=== PATIENT | male | born 1965 | race Caucasian/White ===

== ENCOUNTER 2018-03-03 15:25 | Outpatient (REF) | payer OTHER, MEDICAID, SELFPAY ==
[2018-03-03 16:19] LABS: Bilirubin Negative (Negative); Blood Moderate (Negative); Clarity Sl Cloudy; Glucose Negative (Negative); Ketones Negative (Negative); Leukocyte Esterase Trace (Negative); Nitrite Negative (Negative); Urobilinogen 0.2 EU/dL (Up TO 0.2); pH 5.5 (5-8)
[2018-03-03 16:25] LABS: Bilirubin Negative (Negative); Blood Large (Negative); Clarity Cloudy; Glucose Negative (Negative); Ketones Negative (Negative); Leukocyte Esterase Small (Negative); Nitrite Negative (Negative); Urobilinogen 0.2 EU/dL (Up TO 0.2)
[2018-03-03 16:30] LABS: Bilirubin, Total 0.4 mg/dL (0.2-1.0); TSH 56.37 uIU/mL (0.358-3.74)
[2018-03-03 16:37] LABS: C & S Indicated? Yes
[2018-03-03 17:04] LABS: RBC Negative (0-2); WBC >50 HPF (0-5)
[2018-03-03 17:05] LABS: Bacteria Rare HPF (Negative); C & S Indicated? Yes; Crystals Negative HPF (Negative); Epithelial Cells Rare HPF (Negative); Mucus Trace (Negative)
[2018-03-04 17:26] LABS: T3, Total 112 ng/dl (97-169)
[2018-03-05 22:33] LABS: Iodine, Random Urine 73 mcg/L (26-705)
[2018-03-05 22:33] LABS: Iodine, Random Urine 105 mcg/L (26-705)
== END 2018-03-03 15:45 ==
LOC: LBN 15:25
PROVIDERS: Student in an Organized Health Care Education/Training Program; PCP Internal Medicine; Visit Provider Internal Medicine
DX: E03.9 Hypothyroidism, unspecified (principal); Z92.25 Personal history of immunosuppression therapy
CPT/HCPCS: 83018; 87077; 81003; 81015; 82247; 84443; 84445; 84480; 87086; 87186

== ENCOUNTER 2018-03-22 09:00 | Outpatient (REF) | payer OTHER, MEDICAID, SELFPAY ==
[2018-03-22 12:02] LABS: Bilirubin Negative (Negative); Blood Moderate (Negative); Clarity Cloudy; Glucose Negative (Negative); Ketones Negative (Negative); Leukocyte Esterase Small (Negative); Nitrite Positive (Negative); Specific Gravity >= 1.030 (1.005-1.025); Urobilinogen 0.2 EU/dL (Up TO 0.2); pH 5.5 (5-8)
[2018-03-22 12:05] LABS: Bilirubin Negative (Negative); Blood Large (Negative); Clarity Cloudy; Glucose Negative (Negative); Ketones Negative (Negative); Leukocyte Esterase Large (Negative); Nitrite Positive (Negative); Urobilinogen 0.2 EU/dL (Up TO 0.2); pH 6.5 (5-8)
[2018-03-22 12:30] LABS: Bacteria Moderate HPF (Negative); C & S Indicated? Yes; Casts Negative LPF (Negative); Crystals Few Calcium Oxalate HPF (Negative); Epithelial Cells Negative HPF (Negative); Mucus Negative (Negative); RBC 20-50 (0-2); WBC 20-50 HPF (0-5)
[2018-03-22 12:31] LABS: RBC >50 (0-2); WBC >50 HPF (0-5)
[2018-03-22 12:32] LABS: Bacteria Moderate HPF (Negative); C & S Indicated? Yes; Casts Negative LPF (Negative); Crystals Negative HPF (Negative); Epithelial Cells Negative HPF (Negative); Mucus Negative (Negative)
== END 2018-03-22 09:20 ==
LOC: LBN 09:00
PROVIDERS: PCP Internal Medicine; Visit Provider Family Medicine
DX: Z93.6 Other artificial openings of urinary tract status (principal); Z43.6 Encounter for attention to other artificial openings of urinary tract; Z92.25 Personal history of immunosuppression therapy
CPT/HCPCS: 87077; 81003; 81015; 87086; 87186

== ENCOUNTER 2018-04-10 15:33 | Outpatient (REF) | payer OTHER, MEDICAID, SELFPAY ==
[2018-04-10 16:14] LABS: Bilirubin Negative (Negative); Blood Large (Negative); Clarity Sl Cloudy; Glucose Negative (Negative); Ketones Negative (Negative); Leukocyte Esterase Moderate (Negative); Nitrite Negative (Negative); Urobilinogen 0.2 EU/dL (Up TO 0.2)
[2018-04-10 16:25] LABS: Bacteria Few HPF (Negative); Crystals Negative HPF (Negative); Epithelial Cells Rare HPF (Negative); Mucus Negative (Negative); Other Cells Negative (Negative); RBC >50 (0-2)
[2018-04-10 16:26] LABS: C & S Indicated? C&S Done As Ordered
[2018-04-10 18:05] LABS: Bilirubin Negative (Negative); Blood Small (Negative); Clarity Clear; Glucose Negative (Negative); Ketones Negative (Negative); Leukocyte Esterase Trace (Negative); Nitrite Negative (Negative); Urobilinogen 0.2 EU/dL (Up TO 0.2); pH 6.5 (5-8)
[2018-04-10 18:22] LABS: Bacteria Rare HPF (Negative); Casts Negative LPF (Negative); Crystals Negative HPF (Negative); Epithelial Cells Rare HPF (Negative); Mucus Negative (Negative); Other Cells Negative (Negative); RBC 0-2 (0-2); WBC 0-2 HPF (0-5)
[2018-04-10 18:23] LABS: C & S Indicated? C&S Done As Ordered
== END 2018-04-10 15:53 ==
LOC: LBN 15:33
PROVIDERS: PCP Family Medicine; Visit Provider Family Medicine
DX: C67.9 Malignant neoplasm of bladder, unspecified (principal); C79.9 Secondary malignant neoplasm of unspecified site; Z93.6 Other artificial openings of urinary tract status; Z43.6 Encounter for attention to other artificial openings of urinary tract; Z92.25 Personal history of immunosuppression therapy
CPT/HCPCS: 87077; 81003; 81015; 87086; 87186

== ENCOUNTER 2018-04-24 15:08 | Outpatient (REF) | payer OTHER, MEDICAID, SELFPAY ==
[2018-04-24 16:17] LABS: Bilirubin Negative (Negative); Blood Small (Negative); Clarity Clear; Glucose Negative (Negative); Ketones Negative (Negative); Leukocyte Esterase Negative (Negative); Nitrite Negative (Negative); Urobilinogen 0.2 EU/dL (Up TO 0.2)
[2018-04-24 16:20] LABS: Bilirubin Negative (Negative); Blood Large (Negative); Clarity Clear; Glucose Negative (Negative); Ketones Negative (Negative); Leukocyte Esterase Small (Negative); Nitrite Negative (Negative); Specific Gravity 1.015 (1.005-1.025); Urobilinogen 0.2 EU/dL (Up TO 0.2)
[2018-04-24 16:40] LABS: Epithelial Cells Negative HPF (Negative); Other Cells Negative (Negative); RBC 0-2 (0-2); WBC Negative HPF (0-5)
[2018-04-24 16:41] LABS: Bacteria Few HPF (Negative); C & S Indicated? No; Casts Negative LPF (Negative); Crystals Negative HPF (Negative); Epithelial Cells Negative HPF (Negative); Mucus Negative (Negative); Other Cells Negative (Negative)
[2018-04-24 16:42] LABS: C & S Indicated? Yes; Casts Negative LPF (Negative); Crystals Negative HPF (Negative); Mucus Negative (Negative)
== END 2018-04-24 15:28 ==
LOC: NCHCO 15:08
PROVIDERS: Urology; PCP Family Medicine; Visit Provider Family Medicine
DX: C79.10 Secondary malignant neoplasm of unspecified urinary organs (principal); Z93.6 Other artificial openings of urinary tract status; Z43.6 Encounter for attention to other artificial openings of urinary tract; J18.9 Pneumonia, unspecified organism; Z92.25 Personal history of immunosuppression therapy
CPT/HCPCS: 81003; 81015; 87086

== ENCOUNTER 2018-05-13 14:55 | Outpatient (REF) | payer OTHER, MEDICAID, SELFPAY ==
[2018-05-13 17:07] LABS: Bilirubin Negative (Negative); Blood Moderate (Negative); Clarity Clear; Glucose Negative (Negative); Ketones Negative (Negative); Leukocyte Esterase Trace (Negative); Nitrite Negative (Negative); Urobilinogen 0.2 EU/dL (Up TO 0.2); pH 5.5 (5-8)
[2018-05-13 17:10] LABS: Bilirubin Negative (Negative); Blood Large (Negative); Clarity Sl Cloudy; Glucose Negative (Negative); Ketones Negative (Negative); Leukocyte Esterase Large (Negative); Nitrite Negative (Negative); Urobilinogen 0.2 EU/dL (Up TO 0.2)
[2018-05-13 17:59] LABS: Bacteria Few HPF (Negative); C & S Indicated? Yes; Casts Negative LPF (Negative); Crystals Negative HPF (Negative); Epithelial Cells Negative HPF (Negative); Mucus Negative (Negative)
[2018-05-13 18:00] LABS: Bacteria Negative HPF (Negative); C & S Indicated? Yes; Casts Negative LPF (Negative); Crystals Negative HPF (Negative); Epithelial Cells Negative HPF (Negative); Mucus Negative (Negative); Other Cells Negative (Negative); RBC >50 (0-2)
== END 2018-05-13 15:15 ==
LOC: LBN 14:55
PROVIDERS: PCP Family Medicine; Visit Provider Urology
DX: J18.9 Pneumonia, unspecified organism (principal); Z92.25 Personal history of immunosuppression therapy; Z43.6 Encounter for attention to other artificial openings of urinary tract; Z93.6 Other artificial openings of urinary tract status; R82.90 Unspecified abnormal findings in urine
CPT/HCPCS: 87077; 81003; 81015; 87086; 87186

== ENCOUNTER 2018-05-14 11:28 | Outpatient (REF) | payer OTHER, MEDICAID, SELFPAY ==
[2018-05-14 12:54] LABS: TSH (W/Ref FT4) 4.13 uIU/mL (0.358-3.74)
== END 2018-05-14 11:48 ==
LOC: LBN 11:28
PROVIDERS: PCP Family Medicine; Visit Provider Student in an Organized Health Care Education/Training Program
DX: E03.9 Hypothyroidism, unspecified (principal); C79.89 Secondary malignant neoplasm of other specified sites; Z92.25 Personal history of immunosuppression therapy
CPT/HCPCS: 84439; 84443

== ENCOUNTER 2018-06-06 15:06 | Outpatient (REF) | payer OTHER, MEDICAID, SELFPAY ==
[2018-06-06 16:22] LABS: Bilirubin Negative (Negative); Blood Large (Negative); Clarity Sl Cloudy; Glucose Negative (Negative); Ketones Negative (Negative); Leukocyte Esterase Moderate (Negative); Nitrite Negative (Negative); Specific Gravity 1.015 (1.005-1.025); Urobilinogen 0.2 EU/dL (Up TO 0.2)
[2018-06-06 16:24] LABS: Bilirubin Negative (Negative); Blood Trace-intact (Negative); Clarity Clear; Glucose Negative (Negative); Ketones Negative (Negative); Leukocyte Esterase Small (Negative); Nitrite Negative (Negative); Specific Gravity 1.015 (1.005-1.025); Urobilinogen 0.2 EU/dL (Up TO 0.2)
[2018-06-06 16:37] LABS: Bacteria Moderate HPF (Negative); Crystals Negative HPF (Negative); Epithelial Cells Negative HPF (Negative); Mucus Negative (Negative); Other Cells Rare Renal (Negative); RBC >50 (0-2); WBC 20-50 HPF (0-5)
[2018-06-06 16:38] LABS: C & S Indicated? Yes; Epithelial Cells Negative HPF (Negative); Other Cells Rare Renal (Negative)
[2018-06-06 16:39] LABS: Bacteria Few HPF (Negative); C & S Indicated? Yes; Casts Negative LPF (Negative); Crystals Negative HPF (Negative); Mucus Negative (Negative)
== END 2018-06-06 15:26 ==
LOC: LBN 15:06
PROVIDERS: PCP Family Medicine; Visit Provider Urology
DX: C67.9 Malignant neoplasm of bladder, unspecified (principal); C79.10 Secondary malignant neoplasm of unspecified urinary organs; Z93.6 Other artificial openings of urinary tract status; Z43.6 Encounter for attention to other artificial openings of urinary tract; Z92.25 Personal history of immunosuppression therapy
CPT/HCPCS: 87077; 81003; 81015; 87086; 87186

== ENCOUNTER 2018-06-23 14:16 | Outpatient (REF) | payer OTHER, MEDICAID, SELFPAY ==
[2018-06-23 16:22] LABS: Bilirubin Negative (Negative); Blood Trace-lysed (Negative); Clarity Cloudy; Glucose Negative (Negative); Ketones Negative (Negative); Leukocyte Esterase Trace (Negative); Nitrite Negative (Negative); Specific Gravity 1.025 (1.005-1.025); Urobilinogen 0.2 EU/dL (Up TO 0.2); pH 5.5 (5-8)
[2018-06-23 16:26] LABS: Bilirubin Negative (Negative); Blood Large (Negative); Clarity Sl Cloudy; Glucose Negative (Negative); Ketones Negative (Negative); Leukocyte Esterase Large (Negative); Nitrite Negative (Negative); Specific Gravity 1.015 (1.005-1.025); Urobilinogen 0.2 EU/dL (Up TO 0.2)
[2018-06-23 16:38] LABS: Epithelial Cells Rare HPF (Negative)
[2018-06-23 16:39] LABS: C & S Indicated? Yes; Casts Negative LPF (Negative); Crystals Few Amorphous HPF (Negative); Mucus Trace (Negative)
[2018-06-23 16:40] LABS: C & S Indicated? Yes; WBC >50 HPF (0-5)
[2018-06-25 11:06] LABS: Bacteria Many HPF (Negative)
== END 2018-06-23 14:36 ==
LOC: LBN 14:16
PROVIDERS: PCP Family Medicine; Visit Provider Urology
DX: J18.9 Pneumonia, unspecified organism (principal); Z92.21 Personal history of antineoplastic chemotherapy; Z92.25 Personal history of immunosuppression therapy; Z93.6 Other artificial openings of urinary tract status
CPT/HCPCS: 87077; 81003; 81015; 87086; 87186

== ENCOUNTER 2018-07-09 14:16 | Outpatient (REF) | payer OTHER, MEDICAID, SELFPAY ==
[2018-07-09 14:53] LABS: HCT 34.9 % (40.0-50.0); HGB 11.3 g/dL (13.5-17.5); Mean Corp. HGB Concentration 32.4 g/dL (32.0-36.0); Mean Corpuscular Hemoglobin 27.1 pg (27.0-33.0); Mean Corpuscular Volume 83.7 fL (80-95); Mean Platelet Volume 10.3 fL (8.0-11.0); Platelet Count 288 x1000/uL (130-400); RBC 4.17 m/cumm (4.50-6.00); RBC Distribution Width 12.9 % (11.8-14.1); White Blood Cell Count 5.83 k/cumm (4.4-10.8)
== END 2018-07-09 14:36 ==
LOC: LBN 14:16
PROVIDERS: PCP Family Medicine; Visit Provider Family Medicine
DX: I82.629 Acute embolism and thrombosis of deep veins of unspecified upper extremity (principal); Z79.01 Long term (current) use of anticoagulants
CPT/HCPCS: 85027

== ENCOUNTER 2018-07-10 16:03 | Outpatient (REF) | payer OTHER, MEDICAID, SELFPAY | END 2018-07-10 16:23 | LOC: LBN 16:03 | PROVIDERS: PCP Family Medicine; Visit Provider Family Medicine | DX: K92.1 Melena (principal) | CPT/HCPCS: 82272 ==

== ENCOUNTER 2018-07-21 16:51 | Outpatient (REF) | payer OTHER, MEDICAID, SELFPAY ==
[2018-07-21 17:48] LABS: HCT 32.4 % (40.0-50.0); HGB 10.3 g/dL (13.5-17.5); Mean Corp. HGB Concentration 31.8 g/dL (32.0-36.0); Mean Corpuscular Hemoglobin 26.7 pg (27.0-33.0); Mean Corpuscular Volume 83.9 fL (80-95); Mean Platelet Volume 10.3 fL (8.0-11.0); Platelet Count 387 x1000/uL (130-400); RBC 3.86 m/cumm (4.50-6.00); RBC Distribution Width 13.2 % (11.8-14.1); White Blood Cell Count 5.92 k/cumm (4.4-10.8)
== END 2018-07-21 17:11 ==
LOC: NCHCN 16:51
PROVIDERS: PCP Family Medicine; Visit Provider Family Medicine
DX: I82.491 Acute embolism and thrombosis of other specified deep vein of right lower extremity (principal); K92.2 Gastrointestinal hemorrhage, unspecified
CPT/HCPCS: 85027

== ENCOUNTER 2018-09-25 09:01 | Outpatient (REF) | payer OTHER, SELFPAY ==
[2018-09-25 09:28] LABS: Abs Immature Grans 0.06 k/cumm (0.0-0.09); Absolute Basophil Count 0.03 k/cumm (0.0-0.2); Absolute Lymphocyte Count 0.86 k/cumm (1.2-3.4); Absolute Monocyte Count 0.44 k/cumm (0.11-0.7); Absolute Neutrophil Count 3.63 k/cumm (1.2-6.7); Basophils % 0.6; HCT 28.1 % (40.0-50.0); HGB 8.6 g/dL (13.5-17.5); Immature Grans % 1.2; Lymphocytes % 17.1; Mean Corp. HGB Concentration 30.6 g/dL (32.0-36.0); Mean Corpuscular Hemoglobin 26.8 pg (27.0-33.0); Mean Corpuscular Volume 87.5 fL (80-95); Mean Platelet Volume 10.8 fL (8.0-11.0); Monocytes % 8.8; Neutrophils % 72.3; Platelet Count 196 x1000/uL (130-400); RBC 3.21 m/cumm (4.50-6.00); RBC Distribution Width 16.7 % (11.8-14.1); White Blood Cell Count 5.02 k/cumm (4.4-10.8)
[2018-09-25 09:49] LABS: TSH 5.76 uIU/mL (0.358-3.74)
== END 2018-09-25 09:21 ==
LOC: LBN 09:01
PROVIDERS: PCP Family Medicine; Visit Provider Student in an Organized Health Care Education/Training Program
DX: D64.9 Anemia, unspecified (principal); M79.609 Pain in unspecified limb; R31.9 Hematuria, unspecified; Z79.01 Long term (current) use of anticoagulants; E05.90 Thyrotoxicosis, unspecified without thyrotoxic crisis or storm; E03.9 Hypothyroidism, unspecified
CPT/HCPCS: 84443; 85025

== ENCOUNTER 2018-10-07 15:14 | Outpatient (REF) | payer OTHER, MEDICAID, SELFPAY ==
[2018-10-07 16:46] LABS: Abs Immature Grans 6.37 k/cumm (0.0-0.09); HGB 7.8 g/dL (13.5-17.5); Mean Corp. HGB Concentration 31.2 g/dL (32.0-36.0); Mean Corpuscular Hemoglobin 26.6 pg (27.0-33.0); Mean Corpuscular Volume 85.3 fL (80-95); Mean Platelet Volume 10.9 fL (8.0-11.0); Platelet Count 298 x1000/uL (130-400); RBC 2.93 m/cumm (4.50-6.00); RBC Distribution Width 16.3 % (11.8-14.1)
[2018-10-07 20:39] LABS: Absolute Lymphocyte Count 1.36 k/cumm (1.2-3.4); Absolute Neutrophil Count 21.95 k/cumm (1.2-6.7); Atypical Lymphocytes % 1
[2018-10-07 20:40] LABS: Absolute Eosinophil Count 0.54 k/cumm (0.0-0.7); Absolute Monocyte Count 1.08 k/cumm (0.11-0.7); Diff Comment Manual Differential; Hypochromasia 2+; Nucleated RBC 1 /100WBC
== END 2018-10-07 15:34 ==
LOC: LBN 15:14
PROVIDERS: PCP Family Medicine
DX: D64.9 Anemia, unspecified (principal)
CPT/HCPCS: 85025

== ENCOUNTER 2018-10-10 15:18 | Outpatient (REF) | payer OTHER, MEDICAID, SELFPAY ==
[2018-10-10 16:10] LABS: Abs Immature Grans 2.52 k/cumm (0.0-0.09); HCT 31.1 % (40.0-50.0); HGB 9.6 g/dL (13.5-17.5); Mean Corp. HGB Concentration 30.9 g/dL (32.0-36.0); Mean Corpuscular Hemoglobin 26.5 pg (27.0-33.0); Mean Corpuscular Volume 85.9 fL (80-95); Mean Platelet Volume 10.8 fL (8.0-11.0); Platelet Count 240 x1000/uL (130-400); RBC 3.62 m/cumm (4.50-6.00); White Blood Cell Count 23.41 k/cumm (4.4-10.8)
[2018-10-10 20:01] LABS: Absolute Lymphocyte Count 1.87 k/cumm (1.2-3.4)
[2018-10-10 20:02] LABS: Absolute Monocyte Count 1.17 k/cumm (0.11-0.7); Diff Comment Manual Differential; RBC Morphology Normal
== END 2018-10-10 15:38 ==
LOC: NCHCN 15:18
PROVIDERS: PCP Family Medicine; Visit Provider Physician Assistant
DX: D64.9 Anemia, unspecified (principal); R53.83 Other fatigue
CPT/HCPCS: 85025

== ENCOUNTER 2018-10-15 18:11 | Outpatient (REF) | payer OTHER, MEDICAID, SELFPAY ==
[2018-10-15 19:06] LABS: Abs Immature Grans 0.07 k/cumm (0.0-0.09); Absolute Basophil Count 0.03 k/cumm (0.0-0.2); Absolute Eosinophil Count 0.06 k/cumm (0.0-0.7); Absolute Lymphocyte Count 0.98 k/cumm (1.2-3.4); Absolute Monocyte Count 0.77 k/cumm (0.11-0.7); Absolute Neutrophil Count 5.12 k/cumm (1.2-6.7); Basophils % 0.4; Eosinophils % 0.9; HCT 25.1 % (40.0-50.0); HGB 7.9 g/dL (13.5-17.5); Lymphocytes % 13.9; Mean Corp. HGB Concentration 31.5 g/dL (32.0-36.0); Mean Corpuscular Hemoglobin 26.6 pg (27.0-33.0); Mean Corpuscular Volume 84.5 fL (80-95); Mean Platelet Volume 11.2 fL (8.0-11.0); Neutrophils % 72.8; Platelet Count 224 x1000/uL (130-400); RBC 2.97 m/cumm (4.50-6.00); RBC Distribution Width 15.4 % (11.8-14.1); White Blood Cell Count 7.03 k/cumm (4.4-10.8)
== END 2018-10-15 18:31 ==
LOC: LBN 18:11
PROVIDERS: PCP Family Medicine; Visit Provider Physician Assistant
DX: D64.9 Anemia, unspecified (principal); R53.83 Other fatigue; Z79.01 Long term (current) use of anticoagulants
CPT/HCPCS: 85025

== ENCOUNTER 2018-11-01 14:31 | Outpatient (REF) | payer OTHER, MEDICAID, SELFPAY ==
[2018-11-01 14:52] LABS: HCT 31.9 % (40.0-50.0)
[2018-11-01 14:58] LABS: HGB 10.2 g/dL (13.5-17.5)
== END 2018-11-01 14:51 ==
LOC: LBN 14:31
PROVIDERS: PCP Family Medicine; Visit Provider Family Medicine
DX: K92.2 Gastrointestinal hemorrhage, unspecified (principal); K26.9 Duodenal ulcer, unspecified as acute or chronic, without hemorrhage or perforation
CPT/HCPCS: 85014; 85018

== ENCOUNTER 2018-11-07 15:19 | Outpatient (REF) | payer OTHER, MEDICAID, SELFPAY ==
[2018-11-07 15:42] LABS: HCT 24.3 % (40.0-50.0); HGB 7.7 g/dL (13.5-17.5)
[2018-11-07 16:07] LABS: TSH 54.42 uIU/mL (0.358-3.74)
== END 2018-11-07 15:39 ==
LOC: LBN 15:19
PROVIDERS: PCP Family Medicine; Visit Provider Internal Medicine Hematology & Oncology
DX: K92.2 Gastrointestinal hemorrhage, unspecified (principal)
CPT/HCPCS: 84443; 85014; 85018

== ENCOUNTER 2018-11-09 17:18 | Outpatient (REF) | payer OTHER, MEDICAID, SELFPAY ==
[2018-11-09 17:56] LABS: HCT 22.3 % (40.0-50.0)
[2018-11-09 18:01] LABS: HGB 6.8 g/dL (13.5-17.5)
== END 2018-11-09 17:38 ==
LOC: LBN 17:18
PROVIDERS: PCP Family Medicine; Visit Provider Family Medicine
DX: D64.9 Anemia, unspecified (principal)
CPT/HCPCS: 85014; 85018

== ENCOUNTER 2018-11-13 12:38 | Outpatient (REF) | payer OTHER, MEDICAID, SELFPAY ==
[2018-11-13 13:54] LABS: Abs Immature Grans 0.07 k/cumm (0.0-0.09); Absolute Basophil Count 0.02 k/cumm (0.0-0.2); Absolute Eosinophil Count 0.08 k/cumm (0.0-0.7); Absolute Lymphocyte Count 0.83 k/cumm (1.2-3.4); Absolute Monocyte Count 1.14 k/cumm (0.11-0.7); Absolute Neutrophil Count 8.65 k/cumm (1.2-6.7); Basophils % 0.2; Eosinophils % 0.7; HCT 24.8 % (40.0-50.0); HGB 7.6 g/dL (13.5-17.5); Immature Grans % 0.6; Lymphocytes % 7.7; Mean Corp. HGB Concentration 30.6 g/dL (32.0-36.0); Mean Corpuscular Hemoglobin 25.6 pg (27.0-33.0); Mean Corpuscular Volume 83.5 fL (80-95); Mean Platelet Volume 10.5 fL (8.0-11.0); Monocytes % 10.6; Neutrophils % 80.2; Platelet Count 275 x1000/uL (130-400); RBC 2.97 m/cumm (4.50-6.00); RBC Distribution Width 15.9 % (11.8-14.1); White Blood Cell Count 10.79 k/cumm (4.4-10.8)
[2018-11-13 14:31] LABS: Anisocytosis 1+; Diff Comment RBC Morph Reviewed; Hypochromasia 2+; Poikilocytes 1+; Polychromasia Present
== END 2018-11-13 12:58 ==
LOC: LBN 12:38
PROVIDERS: PCP Family Medicine; Visit Provider Family Medicine
DX: D64.9 Anemia, unspecified (principal); R53.83 Other fatigue; Z79.01 Long term (current) use of anticoagulants
CPT/HCPCS: 85025